=== PATIENT | male | born 1950 | race Caucasian/White ===

== ENCOUNTER → 2016-08-29 | Outpatient (CLI) | payer MEDICARE | END | disposition home or self-care (01) | LOC: LABPAT 12:19 | PROVIDERS: ATTEND Orthopaedic Surgery | DX: Z01.812 Encounter for preprocedural laboratory examination (principal) | CPT/HCPCS: 87070 ==

== ENCOUNTER 2016-09-15 08:16 | Inpatient (IN) | payer MEDICARE ==
[2016-09-05 09:52] VITALS: BMI 48.1
--- NOTE | 2016-09-14 15:07 | HP ---
DATE OF ADMISSION: 09/15/2016 Kevin Orozco is a 66-year-old patient seen with progressive left knee pain. After treatment options were discussed, he elected to proceed with left total knee arthroplasty. Consent regarding the procedure was obtained. Medical clearance provided by Dr. Rae. Cardiac clearance was provided by Dr. Higgins. Past medical history is cardiovascular disease, hyperlipidemia, hypertension. Past surgical history is noncontributory. DAILY MEDICATIONS: 1. Enalapril. 2. Furosemide. 3. Metoprolol. 4. Simvastatin. 5. Warfarin. Allergies are CODEINE. SOCIAL HISTORY: Patient denies tobacco use. Physical evaluation of the left knee: Range of motion is 0 to 120 degrees, tenderness along the medial joint line, mild intra-articular effusion. Crepitus along the medial and patellofemoral compartments with range of motion. There is pain with patellofemoral compression. There is a genu varum deformity about the knee, ligaments are stable. Hip rotation is without pain. The distal neurovascular exam is intact. Radiographs which were obtained of the left knee revealed severe medial and moderate to severe patellofemoral compartment osteoarthritis. IMPRESSION: Left knee osteoarthritis. PLAN: Left total knee arthroplasty.
[~2016-09-15 08:16] MED LIST: ACETAMINOPHEN TAB 500 MG TAB PO ONE; DEXAMETHASONE SOD PHOSPHATE 10 MG/ML 1 ML VIAL IV ONE; HYDROmorphone 1 MG/ML 1 ML SYRINGE IVP PRN; LACTATED RINGERS 1,000 ML IV SCH; LIDOCAINE 1% 20 ML VIAL (10MG/ML) FOR IV START INTRADERMA PRN; MELOXICAM 7.5 MG TAB PO ONE; MIDAZOLAM 2 MG/2 ML VIAL IV PRN; ONDANSETRON 4 MG/2 ML VIAL IVP ONE; SCOPOLAMINE 1.5MG/72HR PATCH TRANSDERM ONE; TRANEXAMIC ACID 1,000 MG in SODIUM CHLORIDE 0.9% 100 ML IVPB ONE; ceFAZolin 3 GM in SODIUM CHLORIDE 0.9% 100 ML IVPB ONE
[2016-09-15 09:15] LABS: INR 1.4 (<1.1); Prothrombin Time 13.5 sec (9.0-12.0)
[2016-09-15] MEDS ORDERED: LIDOCAINE 1% 20 ML VIAL (10MG/ML) FOR IV START INTRADERMA ONE (09:25)
[2016-09-15] MEDS ORDERED: ROPIVACAINE 246.25 MG, EPINEPHrine 0.5 MG, KETOROLAC 30 MG, cloNIDine HCL/PF 80 MCG, WA... MISCELLANE ONE ×5 (09:26)
[2016-09-15] MEDS ORDERED: MIDAZOLAM 2 MG/2 ML VIAL IV ONE (09:40)
[2016-09-15] MEDS ORDERED: NEOSTIGMINE 1 MG/ML 10 ML VIAL ONE (10:10)
[2016-09-15] MEDS ORDERED: SODIUM CHLORIDE 0.9% 100 ML BAG ONE (10:10)
[2016-09-15] MEDS ORDERED: TRANEXAMIC ACID 1,000 MG/10 ML VIAL ONE (10:10)
[2016-09-15] MEDS ORDERED: SUCCINYLCHOLINE CHLORIDE 100 MG/5 ML SYR IV ONE (10:10)
[2016-09-15] MEDS ORDERED: GLYCOPYRROLATE 0.2 MG/ML 2 ML VIAL ONE (10:10)
[2016-09-15] MEDS ORDERED: fentaNYL (PF) 50 MCG/ML 2 ML AMP ONE (10:10)
[2016-09-15] MEDS ORDERED: HYDROmorphone (PF) 1 MG/ML ONE (10:10)
[2016-09-15] MEDS ORDERED: ROCURONIUM BROMIDE 10 MG/ML 10 ML VIAL IV ONE (10:10)
[2016-09-15] MEDS ORDERED: PROPOFOL 10 MG/ML 20 ML VIAL IV ONE (10:10)
[2016-09-15] MEDS ORDERED: LIDOCAINE 1% INJ 10MG/ML (20 ML MDV) ONE (10:10)
[2016-09-15] MEDS ORDERED: MIDAZOLAM 2 MG/2 ML VIAL ONE (10:10)
[2016-09-15] MEDS ORDERED: ceFAZolin 3,000 MG in SODIUM CHLORIDE 0.9% IRRIGATIO 3,000 ML IRRIGATION ONE (10:41)
[2016-09-15] MEDS ORDERED: LACTATED RINGERS 1,000 ML IV ONE (11:45)
[2016-09-15] MEDS ORDERED: HYDROcodone/APAP 7.5-325MG 1 EACH TAB PO PRN ×2 (12:02)
[2016-09-15] MEDS ORDERED: ONDANSETRON 4 MG/2 ML VIAL IVP PRN (12:02)
[2016-09-15] MEDS ORDERED: HYDROmorphone 1 MG/ML 1 ML SYRINGE IVP PRN ×3 (12:02)
[2016-09-15] MEDS ORDERED: NALOXONE 0.4 MG/ML 1 ML VIAL IV PRN (12:02)
[2016-09-15] MEDS ORDERED: hydrOXYzine PAMOATE 25 MG CAP PO PRN (12:02)
--- NOTE | 2016-09-15 12:02 | P.OP ---
Date of Procedure: 09/15/16 Preoperative Diagnosis: Left knee osteoarthritis 5 Postoperative Diagnosis: Left knee osteoarthritis Procedure(s) Performed: Left total knee arthroplasty Implants: 1. Eric persona size 10 standard left cruciate retaining cemented femur 2. Eric persona size F left cemented tibia 3. Eric persona 13 mm medial congruent polyethylene tibial insert 4. Eric persona 38 mm cemented all polyethylene patella Anesthesia: GETA, regional (Adductor canal block), local Surgeon: Jose You Complaint Investigator #1: Semaj Magallon Estimated Blood Loss (ml): 125 Pathology: none sent Condition: stable Disposition: PACU Indications for Procedure: 66-year-old patient seen with symptomatic left knee osteoarthritis. After treatment options discussed, he elected to proceed with left total knee arthroplasty. Operative Findings: See description of procedure Description of Procedure: Patient was taken to the operative suite after having undergone an adductor canal block by department of anesthesia. Patient underwent a general anesthetic by the department of anesthesia. Patient was given preoperative IV intake antibiotics and TXA. A well-padded tourniquet was placed about the left lower extremity. The lower extremity was then prepped and draped in the normal sterile orthopedic fashion. A standard anterior incision was made sharply through skin. Dissection was taken down through the subcutaneous soft tissues down to the extensor mechanism. A medial arthrotomy was performed, patella was everted and knee was flexed. There was advanced osteoarthritis noted. A proximal tibial cutting guide was positioned. Proximal tibial cut was made. A distal intramedullary femoral cutting guide was positioned, distal femoral cut made. We placed the appropriate sizing guide and selected the appropriate size. A distal 4-in-1 femoral cutting block was positioned, distal femoral cuts were made. We insufflated the tourniquet to 350. We now placed a trial femoral component into position, along with an appropriate size tibial tray and insert. We now took the knee through range of motion and had full extension good flexion and good overall soft tissue balance noted. The patella was everted and a flush cut made with patellar quad tendon. We templated the patella, appropriate drill holes were made. An appropriate trial patella was positioned, knee was taken through full range of motion with the patella tracking very nicely. The trial patella was removed. Drill holes were made through the femoral component. All trial components were removed after marking off the appropriate rotation of the tibia. Retractors were now positioned along the proximal tibia. An appropriate keel punch was made with the appropriate size tibial guide. At this point appropriate size implants were chosen and opened. The joint was irrigated copiously with pulse lavage mechanical irrigation. The deep soft tissues were infiltrated with local analgesic. We mixed antibiotic methylmethacrylate. Once the methyl methacrylate was ready, the tibial component was cemented into place removing any excess methylmethacrylate. The femoral component was cemented into place removing the removing any excess methylmethacrylate. We then inserted the appropriate size polyethylene tibial insert. We made sure that it was locked into position. We took the knee into full extension, and then back in a flexion making sure we had removed any excess methylmethacrylate. The patellar component was then cemented down and secured with clamp. Excess methylmethacrylate removed. We kept the knee in full extension, patellar clamp in position until methylmethacrylate had hardened. Once it had hardened the patellar clamp was removed. The knee was taken through full range of motion. The patella tracked nicely. There was good soft tissue balancing. The tourniquet was now released. Additional hemostasis was achieved via electrocautery. A second gram of TXA was given. The wound was irrigated with pulse lavage mechanical irrigation. The superficial soft tissues were infiltrated local analgesic. The extensor mechanism was repaired with Vicryl. We checked the repair with range of motion and it was stable. The subcutaneous soft tissues were repaired with Vicryl in layers. The skin was approximated with pernio/Dermabond. Sterile dressings were applied followed by loose web roll and Rishabh bandage. The patient was transferred to a bed, and taken to recovery in stable and satisfactory condition. Semaj HALL assisted with the procedure.
[2016-09-15] MEDS ORDERED: ROPIVACAINE 1,100 MG, SODIUM CHLORIDE 0.9% 330 ML MISCELLANE PRN ×2 (12:28)
--- NOTE | 2016-09-15 13:43 | XR ---
EXAMINATION TYPE: XR knee limited LT DATE OF EXAM: 09/15/2016 1:40 PM COMPARISON: NONE HISTORY: Post op FINDINGS: There is a prosthetic knee in near anatomic alignment. There is soft tissue edema and emphysema. IMPRESSION: 1. Postoperative change. Appears in near-anatomic alignment
--- NOTE | 2016-09-15 15:55 | P.ONQ ---
Anesthesiology Proc Note - PNB - Peripheral Nerve Block Performed Left Adductor Canal Infusion Time Out Performed: Yes Procedure Start Time: :40 Procedure Stop Time: :51 Indication: Acute Post-Operative Pain, Requested by physician Sedation Type: Sedate with meaningful contact maintained Preparation: Sterile Dressing Position: Supine Catheter: Indwelling Needle Types: On-Q Needle Size: 50mm (2") Needle Gauge: 21 Technique: Ultrasound Injectate: 0.5% Ropivacaine (see comment for volume) (25cc) Blood Aspirated: No Pain Paresthesia on Injection Noted: No Resistance on Injection: Normal Events: Uneventful and Well Tolerated
[2016-09-15] MEDS: LACTATED RINGERS 1,000 ML IV SCH (15:58)
[2016-09-15] MEDS ORDERED: WARFARIN 5 MG TAB PO ONE (18:00)
[2016-09-15] MEDS: traMADol 50 MG TAB PO SCH ×2 (18:29→21:48)
[2016-09-15] MEDS ORDERED: LISINOPRIL 20 MG TAB PO SCH (18:30)
[2016-09-15] MEDS ORDERED: SENNOSIDES-DOCUSATE SODIUM 1 EACH TAB PO SCH (21:00)
[2016-09-15] MEDS: ceFAZolin 3 GM in SODIUM CHLORIDE 0.9% 100 ML IVPB SCH (21:45)
[2016-09-15] MEDS: METOPROLOL TARTRATE 25 MG TAB PO SCH (21:46)
[2016-09-16 00:46] VITALS: RESP 18
[2016-09-16] MEDS: ceFAZolin 3 GM in SODIUM CHLORIDE 0.9% 100 ML IVPB SCH (04:34)
[2016-09-16] MEDS: LACTATED RINGERS 1,000 ML IV SCH ×2 (04:34→12:42)
[2016-09-16 08:00] LABS: Basophils % (A) 0 %; CH 32.2; CHCM 32.3; Eosinophils # (A) 0.1 k/uL (0-0.7); Eosinophils % (A) 0 %; HDW 2.55; HGB 12.4 gm/dL (13.0-17.5); Luc # (Auto) 0.15; Luc % (Auto) 1; Lymphocytes # (A) 1.3 k/uL (1.0-4.8); Lymphocytes % (A) 10 %; MCHC 31.9 g/dL (31.0-37.0); MCV 100.3 fL (80.0-100.0); Monocytes # (A) 0.9 k/uL (0-1.0); Monocytes % (A) 6 %; Neutrophils # (A) 11.4 k/uL (1.3-7.7); Neutrophils % (A) 82 %; RBC 3.89 m/uL (4.30-5.90); RDW 13.4 % (11.5-15.5); WBC 13.9 k/uL (3.8-10.6); WBC (Perox) 14.58
[2016-09-16 08:16] LABS: INR 1.3 (<1.1); Prothrombin Time 12.7 sec (9.0-12.0)
[2016-09-16 08:30] VITALS: BP 158/86; PULSE 61; TEMP 96.8
[2016-09-16] MEDS: METOPROLOL TARTRATE 25 MG TAB PO SCH (08:53)
[2016-09-16] MEDS: traMADol 50 MG TAB PO SCH ×2 (08:53→13:07)
[2016-09-16] MEDS ORDERED: ENOXAPARIN 30 MG/0.3 ML SYRINGE SQ SCH (09:00)
[2016-09-16] MEDS ORDERED: LISINOPRIL 20 MG TAB PO SCH (09:00)
[2016-09-16] MEDS ORDERED: FAMOTIDINE 20 MG TAB PO SCH (09:00)
[2016-09-16] MEDS ORDERED: MELOXICAM 7.5 MG TAB PO SCH (09:00)
--- NOTE | 2016-09-16 10:08 | P.PN ---
Subjective Principal diagnosis: Status post left total knee arthroplasty Patient seen today resting in his hospital bed, he appears to be in no acute distress. His is present with him at bedside. Urinary catheter is been removed, he is voiding and has had a bowel movement. Denies chest pain, shortness of breath, lightheadedness, fever or chills. Objective - Vital Signs Vital signs: Vital Signs Temp 96.8 F L 09/16/16 07:00 Pulse 61 09/16/16 07:00 Resp 18 09/16/16 07:00 BP 158/86 09/16/16 07:00 Pulse Ox 94 L 09/16/16 07:00 Intake & Output 09/15/16 09/16/16 09/16/16 18:59 06:59 18:59 Intake Total 2151 1100 480 Output Total 425 1500 700 Balance 1726 -400 -220 Weight 135.171 kg Intake: IV 2151 1100 Lactated Ringers 1,000 ml 900 @ 100 mls/hr IV .Q10H NEHEMIAH Rx#:[id number] ceFAZolin 3 gm In Sodium 200 Chloride 0.9% 100 ml @ 100 mls/hr IVPB Q8H NEHEMIAH Rx#:[id number] Oral 480 Output: Urine 300 1500 700 Uretheral (Stewart) 700 Estimated Blood Loss 125 Other: Voiding Method Indwelling Catheter Indwelling Catheter - Exam Left lower extremity: Incision is clean, dry and intact. Medial and lateral aspects to have ecchymosis present. Calf is soft, no tenderness with palpation. Plantar flexion, dorsiflexion, EHL, FHL are intact. Cap refill is less than 3 seconds, sensory exam to light touch is intact - Labs CBC & Chem 7: 09/16/16 07:16 Labs: Abnormal Lab Results - Last 24 Hours (Table) 09/16/16 09/16/16 Range/Units 07:16 07:25 WBC 13.9 H (3.8-10.6) k/uL RBC 3.89 L (4.30-5.90) m/uL Hgb 12.4 L (13.0-17.5) gm/dL MCV 100.3 H (80.0-100.0) fL Neutrophils # 11.4 H (1.3-7.7) k/uL PT 12.7 H (9.0-12.0) sec Assessment and Plan Plan: Assessment: 1. Postop day #1 status post left total knee arthroplasty Plan: 1. Pain control, utilize oral medication 2. Continue On-Q pump, discontinue day 3 3. Daily dressing changes/ice and elevate 4. Encourage incentive spirometer 5. Continue PT and CPM 6. GI and DVT prophylaxis, continue use of Coumadin and Lovenox during inpatient stay 7. Medical recommendations 8. Discharge planning: Likely be discharged home today Time with Patient: Less than 30
--- NOTE | 2016-09-16 10:10 | P.DS ---
Providers Date of admission: 09/15/16 08:16 Expected date of discharge: 09/16/16 Attending physician: Jose You Consults: 09/15/16 12:02 Consult Physician Routine Consulting Provider: Blanco Carter Consult Reason/Comments: Medical management Do you want consulting provider notified?: Yes Primary care physician: Miri Rae [facility] Course: Date of admission: 09/15/2016 Date of discharge: 09/16/2016 Admission diagnosis: Status post left total knee arthroplasty Discharge diagnosis: Same Attending physician: Dr. You Surgical procedures: Left total knee arthroplasty Brief history: Patient is a 66-year-old male with a history of progressive primary left knee osteoarthritis. At this point patient has failed conservative treatment measures and has opted to proceed with a elective left total knee arthroplasty. Hospital course: Details of patient's surgery can be found in operative report. Patient tolerated the procedure well and was subsequently transported to orthopedic floor. Patient's orthopeidc and medical care was provided daily. Patient had daily laboratory tests performed for evaluation of overall blood counts. Patient had daily physical therapy to include strengthening range of motion as well as education with walker ambulation. Patient had daily CPM usage as part of their physical therapy program. Patient was treated with Lovenox and Coumadin for their postoperative DVT prophylaxis during their inpatient stay. Patient was noted to have a relatively uneventful postoperative course. Patient reported satisfactory pain control with oral pain medications by postoperative day 0. Patient showed satisfactory progress with physical therapy. Patient moved steadily through the program and had no difficulty meeting the goals by postoperative day 1. Given patient's otherwise satisfactory course and having met physical therapy goals, plan is to discharge patient home on postoperative day 1. Discharge condition/disposition: Patient will be discharged home in stable condition. Discharge medications: Instructions are given on resumption of patient's normal daily medications per primary care recommendation, in addition patient will be prescribed [place] 5 mg/325, Pepcid 20 mg, tramadol 50 mg. Discharge instructions: 1. Wound care and infection precautions, keep incision dry and covered while showering, no lotions, creams, moisturizers. No soaking, tubs, pools, hottubs. Do not scrub over the incision. 2. Weight-bear as tolerated with walker / cane until follow-up. 3. Ice and elevate when necessary. Do not exceed 20 minutes per hour with ice pack. 4. Utilize compression sleeve until seen at first follow up appointment. 5. Visiting nursing care. 6. Home physical therapy including home CPM. 7. Pain meds and anticoagulants per prescription. 8. Pain medication has potential to cause constipation. Increase oral fluid and fiber intake. Contact primary care provider if you have not had a bowel movement within 48 hours after discharge 9. No anti-inflammatory medication until discussed at first post operative visit, this including Motrin, Aleve, Mobic, Diclofenac. 10. Follow up in office at 2 weeks postop with Tod Magallon PA-C 11. Follow up with your primary care doctor 7-10 days after discharge. 12. Contact [facility] with any questions, . Procedures: Left total knee arthroplasty Patient Condition at Discharge: Good Plan - Discharge Summary New Discharge Prescriptions: Famotidine [Pepcid] 20 mg PO DAILY #20 tablet Hydrocodone/Acetaminophen [[place] 5-325] 1 each PO Q6HR PRN #40 tab PRN Reason: Pain traMADol HCl [Ultram] 50 mg PO Q6H PRN #40 tab PRN Reason: Pain Discharge Medication List Acetaminophen Tab [Tylenol Tab] 500 mg PO DIRECTED PRN 09/05/16 [History] Cephalexin [Keflex] 500 mg PO TID 09/05/16 [History] Enalapril [Vasotec] 10 mg PO W/SUPPER 09/05/16 [History] Enalapril [Vasotec] 20 mg PO QAM 09/05/16 [History] Furosemide [Lasix] 40 mg PO DIRECTED PRN 09/05/16 [History] Metoprolol Tartrate [Lopressor] 25 mg PO BID 09/05/16 [History] Multivit-Min/FA/Lycopene/Lut [Centrum Silver Tablet] 1 tab PO SUTUTHSA 09/05/16 [History] [place]-3 Acid Ethyl Esters [Lovaza] 2 gm PO QAM 09/05/16 [History] Potassium Chloride [Klor-Con 10] 10 meq PO DIRECTED PRN 09/05/16 [History] Simvastatin [Zocor] 20 mg PO SUTUTHSA 09/05/16 [History] Warfarin [Coumadin] 5 mg PO SUTUTHSA 09/05/16 [History] Warfarin [Coumadin] 7.5 mg PO MOWEFR 09/05/16 [History] Famotidine [Pepcid] 20 mg PO DAILY #20 tablet 09/16/16 [Rx] Hydrocodone/Acetaminophen [[place] 5-325] 1 each PO Q6HR PRN #40 tab 09/16/16 [Rx] traMADol HCl [Ultram] 50 mg PO Q6H PRN #40 tab 09/16/16 [Rx] Follow up Appointment(s)/Referral(s): Semaj Magallon PAC [PHYSICIAN TECHNICAL CLERK] - 2 Weeks Miri Rae MD [Primary Care Provider] - 1 Week Activity/Diet/Wound Care/Special Instructions: Walker - has at home CPM - has at home Home Care [facility] - [phone] Orthopedic Discharge Instructions: 1. Wound care and infection precautions, keep incision dry and covered while showering, no lotions, creams, moisturizers. No soaking, pools, hot tubs. Do not scrub over incision. 2. Weight-bear as tolerated with walker / cane until follow-up. 3. Ice and elevate when necessary. Do not exceed 20 minutes per hour with ice pack. 4. Utilize compression sleeve until seen at first follow up appointment. 5. Visiting nursing care. 6. Home physical therapy including home CPM. 7. Pain meds and anticoagulants per prescription. 8. Pain medication has potential to cause constipation. Increase oral fluid and fiber intake. Contact primary care provider if you have not had a bowel movement within 48 hours after discharge. 9. No anti-inflammatory medication until discussed at first post operative visit, this including Motrin, Aleve, Mobic, Diclofenac. 10. Follow up in office at 2 weeks postop with Tod Magallon PA-C 11. Follow up with your primary care doctor 7-10 days after discharge. 12. Contact [facility] with any questions, . Discharge Disposition: HOME WITH HOME HEALTH SERVICES
--- NOTE | 2016-09-16 10:44 | P.PN ---
Progress Note - Text 09/16 624 am 65-year-old male status post total knee replacement by Dr. You. Patient seen and evaluated this morning for pain control, has no pain VAS of 0 with solution running at 8 mL an hour no motor deficit noted.
--- NOTE | 2016-09-16 11:38 | P.CONS ---
History of Present Illness - Reason for Consult Consult date: 09/16/16 Medical management Requesting physician: Jose You - Chief Complaint Left knee osteoarthritis - History of Present Illness This is a 66-year-old gentleman with past medical history noted below significant for severe osteoarthritis of the left knee who was admitted to the hospital for elective total left knee arthroplasty. Patient is postoperative day #1. He tolerated the procedure well. He is up in the chair today when I saw her. Pain is well controlled. He does not have any specific concerns or complaints. He is hoping to go home today. I was asked to see him for medical management. Review of Systems Review of system: 14 points review of systems were obtained and were negative except to what were mentioned in the HPI. Past Medical History Past Medical History: Atrial Fibrillation, Hyperlipidemia, Hypertension, Osteoarthritis (OA) Additional Past Medical History / Comment(s): cellulitis rt leg 02/2016, on rx currently for UTI History of Any Multi-Drug Resistant Organisms: None Reported Past Surgical History: Pacemaker, Tonsillectomy Additional Past Surgical History / Comment(s): colonsocopy Past Anesthesia/Blood Transfusion Reactions: Motion Sickness Type of Cardiac Device: Permanent Pacemaker Device Placement Date:: 2007 Past Psychological History: No Psychological Hx Reported Smoking Status: Never smoker Past Alcohol Use History: Occasional Past Drug Use History: None Reported - Past Family History Mother Family Medical History: No Reported History Medications and Allergies Home Medications Medication Instructions Recorded Confirmed Type Acetaminophen Tab [Tylenol Tab] 500 mg PO DIRECTED PRN 09/05/16 09/15/16 History Cephalexin [Keflex] 500 mg PO TID 09/05/16 09/15/16 History Enalapril [Vasotec] 10 mg PO W/SUPPER 09/05/16 09/15/16 History Enalapril [Vasotec] 20 mg PO QAM 09/05/16 09/15/16 History Furosemide [Lasix] 40 mg PO DIRECTED PRN 09/05/16 09/15/16 History Metoprolol Tartrate [Lopressor] 25 mg PO BID 09/05/16 09/15/16 History Multivit-Min/FA/Lycopene/Lut 1 tab PO SUTUTHSA 09/05/16 09/15/16 History [Centrum Silver Tablet] [place]-3 Acid Ethyl Esters [Lovaza] 2 gm PO QAM 09/05/16 09/15/16 History Potassium Chloride [Klor-Con 10] 10 meq PO DIRECTED PRN 09/05/16 09/15/16 History Simvastatin [Zocor] 20 mg PO SUTUTHSA 09/05/16 09/15/16 History Warfarin [Coumadin] 5 mg PO SUTUTHSA 09/05/16 09/15/16 History Warfarin [Coumadin] 7.5 mg PO MOWEFR 09/05/16 09/15/16 History Allergies Allergy/AdvReac Type Severity Reaction Status Date / Time codeine Allergy insomnia Verified 09/05/16 09:33 Physical Exam Vitals: Vital Signs Temp Pulse Resp BP Pulse Ox 09/16/16 07:00 96.8 F L 61 18 158/86 94 L 09/16/16 02:00 98.4 F 60 18 117/65 97 09/15/16 20:00 97.4 F L 67 18 139/74 96 09/15/16 17:30 63 131/75 93 L 09/15/16 17:15 62 129/69 93 L 09/15/16 17:00 62 132/72 93 L 09/15/16 16:45 62 134/69 93 L 09/15/16 16:30 63 132/72 93 L 09/15/16 16:15 67 132/74 92 L 09/15/16 16:00 95.4 F L 54 L 16 124/68 92 L 09/15/16 15:27 60 18 140/65 95 09/15/16 14:59 60 18 121/58 95 09/15/16 14:30 60 18 135/56 95 09/15/16 14:15 60 18 139/63 95 09/15/16 13:58 60 18 132/60 95 09/15/16 13:46 60 18 131/56 95 09/15/16 13:30 60 18 128/58 97 09/15/16 13:15 60 18 125/57 97 09/15/16 12:59 60 18 127/57 97 09/15/16 12:44 60 18 128/59 96 09/15/16 12:33 98 F 60 18 131/61 94 L Intake and Output 09/15/16 09/16/16 09/16/16 22:59 06:59 14:59 Intake Total 50 1100 480 Output Total 200 1500 950 Balance -150 -400 -470 Intake: IV 50 1100 Lactated Ringers 1,000 ml 900 @ 100 mls/hr IV .Q10H NEHEMIAH Rx#:[id number] ceFAZolin 3 gm In Sodium 200 Chloride 0.9% 100 ml @ 100 mls/hr IVPB Q8H NEHEMIAH Rx#:[id number] Oral 480 Output: Urine 200 1500 950 Uretheral (Stewart) 700 Other: Voiding Method Indwelling Catheter General: The patient is awake and alert, in no distress, and does not appear acutely ill. Eye: extra-ocular movements are intact; there is normal conjunctiva bilaterally. . Neck: The neck is supple, there is no tenderness or JVD. Cardiovascular: Normal S1-S2, no S3-S4, no murmurs. Respiratory: Lungs clear to auscultation bilaterally with no wheezes rhonchi or rales. Gastrointestinal: Abdomen is soft, nontender, obese Musculoskeletal: There is +1 pedal edema. Neurological: There are no obvious motor or sensory deficits. Speech is normal. Skin: Skin is warm and dry and no rashes or lesions are noted. Results CBC & Chem 7: 09/16/16 07:16 Labs: Abnormal Lab Results - Last 24 Hours (Table) 09/16/16 09/16/16 Range/Units 07:16 07:25 WBC 13.9 H (3.8-10.6) k/uL RBC 3.89 L (4.30-5.90) m/uL Hgb 12.4 L (13.0-17.5) gm/dL MCV 100.3 H (80.0-100.0) fL Neutrophils # 11.4 H (1.3-7.7) k/uL PT 12.7 H (9.0-12.0) sec Assessment and Plan Plan: 1. Severe osteoarthritis of the left knee postoperative day #1 status post total knee arthroplasty 2. DVT prophylaxis on Coumadin per orthopedic protocol 3. Essential hypertension: Blood pressure within acceptable range 4. Paroxysmal atrial fibrillation: Heart rate well controlled. On anticoagulation with Coumadin 5. Mixed hyperlipidemia 6. Physical debility, continue physical therapy as tolerated 7. Leukocytosis: Most likely reactive with no evidence of infection. If patient remained in the hospital repeat CBC in the morning. Today, I reviewed her medication list and lab work results. Continue current regimen. Thank you very much for the consultation. I will continue to follow up on the patient closely. Patient may resume his regular home medication is discharged home today.
[2016-09-16] MEDS ORDERED: MULTIVITAMINS, THERA 1 EACH TAB PO SCH (12:00)
[2016-09-16] MEDS ORDERED: WARFARIN 7.5 MG TAB PO ONE (18:00)
[2016-09-16] MEDS ORDERED: ATORVASTATIN 10 MG TAB PO SCH (21:00)
== END 2016-09-16 14:58 | disposition home health service (06) | DRG 470 ==
LOC: 2ORMAIN 08:16 → 3SUR 15:47
PROVIDERS: ADMIT Orthopaedic Surgery; ATTEND Orthopaedic Surgery
PROC: 0SRD0J9 Replacement of Left Knee Joint with Synthetic Substitute, Cemented, Open Approach (ICD-10-PCS; principal; 2016-09-15 10:05)
DX: M17.12 Unilateral primary osteoarthritis, left knee (principal); I48.91 Unspecified atrial fibrillation; I10 Essential (primary) hypertension; E78.5 Hyperlipidemia, unspecified; I25.10 Atherosclerotic heart disease of native coronary artery without angina pectoris; M21.169 Varus deformity, not elsewhere classified, unspecified knee; Z79.01 Long term (current) use of anticoagulants; Z79.899 Other long term (current) drug therapy; Z88.5 Allergy status to narcotic agent; Z95.0 Presence of cardiac pacemaker
CPT/HCPCS: 85025; 85610; 88300

== ENCOUNTER → 2017-02-12 | Day surgery (SDC) | payer MEDICARE ==
[2017-02-11 10:37] VITALS: BMI 48.4
[~2017-02-12] MED LIST changes: +ACETAMINOPHEN TAB 325 MG TAB PO PRN; -ACETAMINOPHEN TAB 500 MG TAB PO ONE; -DEXAMETHASONE SOD PHOSPHATE 10 MG/ML 1 ML VIAL IV ONE; -HYDROmorphone 1 MG/ML 1 ML SYRINGE IVP PRN; -LACTATED RINGERS 1,000 ML IV SCH; -LIDOCAINE 1% 20 ML VIAL (10MG/ML) FOR IV START INTRADERMA PRN; +LIDOCAINE 1% INJ 10MG/ML (20 ML MDV) SQ ONE; -MELOXICAM 7.5 MG TAB PO ONE; +MIDAZOLAM 2 MG/2 ML VIAL IV ONE; -MIDAZOLAM 2 MG/2 ML VIAL IV PRN; +MIDAZOLAM 2 MG/2 ML VIAL ONE; -ONDANSETRON 4 MG/2 ML VIAL IVP ONE; -SCOPOLAMINE 1.5MG/72HR PATCH TRANSDERM ONE; +SODIUM CHLORIDE 0.9% 1,000 ML IV SCH; -TRANEXAMIC ACID 1,000 MG in SODIUM CHLORIDE 0.9% 100 ML IVPB ONE; +ceFAZolin 1,000 MG in SODIUM CHLORIDE 0.9% IRRIGATIO 250 ML IRRIGATION ONE; +ceFAZolin 2 GM in SODIUM CHLORIDE 0.9% 100 ML IVPB ONE; -ceFAZolin 3 GM in SODIUM CHLORIDE 0.9% 100 ML IVPB ONE; +fentaNYL (PF) 50 MCG/ML 2 ML AMP IV ONE; +fentaNYL (PF) 50 MCG/ML 2 ML AMP ONE
[2017-02-12 06:57] VITALS: RESP 18
[2017-02-12 07:11] LABS: Anion Gap 12 mmol/L; Blood Urea Nitrogen 21 mg/dL (9-20); Calcium 9.1 mg/dL (8.4-10.2); Carbon Dioxide 23 mmol/L (22-30); Chloride 107 mmol/L (98-107); Glucose 110 mg/dL (74-99); Non-African American GFR(MDRD) >60 (>60 ml/min/1.73 sqM); Potassium 4.3 mmol/L (3.5-5.1); Sodium 142 mmol/L (137-145)
[2017-02-12 08:08] LABS: INR 1.3 (<1.1); Prothrombin Time 12.9 sec (9.0-12.0)
--- NOTE | 2017-02-12 08:20 | P.PCN ---
Date of Procedure: 02/12/17 Preoperative Diagnosis: Battery depletion Postoperative Diagnosis: The same Procedure(s) Performed: Generator replacement Implants: Indications for Procedure: Operative Findings: Description of Procedure: HISTORY: This is a 66-year-old gentleman with history of permanent pacemaker implantation for sick sinus syndrome. Recent evaluation showed evidence of battery depletion. Patient is advised to have replacement of the battery. CONSENT: I have discussed the risks and benefits as related to the above mentioned procedure and both sedation/analgesia as well as necessary blood product administration. The patient has indicated understanding and acceptance of the risks of the procedure discussed. PROCEDURE: Patient was brought to the lab in a fasting state. Patient was given IV Versed and fentanyl for sedation. The skin over the existing pulse generator was infiltrated with lidocaine. An incision was made in the skin and was deepened until the pectoral fascia was exposed. Hemostasis was obtained. The existing pulse generator was pulled out of the pocket. The leads were disconnected and were checked for thresholds. THRESHOLDS: ATRIAL: . Patient is in atrial flutter and fibrillation . The impedance is 351 ohms . P-wave VENTRICULAR: The minimal patient threshold was 0.5 V at pulse width of 0.5 ms. Impedance is 456 ohms . R- wave: 16 mV THE LEADS: ATRIAL: This is manufactured by [employer]. Model number is 4479. Serial number is [id number] VENTRICULAR: This is manufactured by [employer]. Model number is 4457. Serial number is [id number] THE EXPLANTED DEVICE: This is manufactured by [employer]. Model number is 1291 and serial number is [id number] THE NEW DEVICE: This is manufactured by [employer] ([employer] Model number is L101 and the serial number is [id number] . The leads were then connected to a new pulse generator . Pacemaker seems to function normally. The pocket was irrigated with antibiotics. The pocket was closed in the usual fashion. Pectoral fascia was closed with 2-0 Prolene, the subcutaneous tissue was closed with 3-0 Prolene and the skin was closed with 4-0 Prolene. Patient tolerated the procedure well . Patient will be monitored on the telemetry unit for 2-3 hours. If stable patient be discharged home later today. PLAN: Continue monitoring for the next 2-3 hours. If stable discharge home. Patient will continue home medications including Coumadin. Patient will have pro time and INR on Thursday. FALLOW UP: With Dr. Higgins in 1 week
[2017-02-12 08:55] VITALS: PULSE 60
[2017-02-12 12:08] VITALS: BP 150/74; TEMP 98.2
== END | disposition home or self-care (01) ==
LOC: CATHEP 06:28
PROVIDERS: ATTEND Internal Medicine Cardiovascular Disease
DX: I48.2 Chronic atrial fibrillation (principal); Z45.010 Encounter for checking and testing of cardiac pacemaker pulse generator [battery]; I49.5 Sick sinus syndrome; Z79.01 Long term (current) use of anticoagulants; I11.0 Hypertensive heart disease with heart failure; I50.32 Chronic diastolic (congestive) heart failure; R60.0 Localized edema; E78.5 Hyperlipidemia, unspecified; Z79.899 Other long term (current) drug therapy
CPT/HCPCS: 33228; 80048; 85610; C1785; J2250; J0690 ×2; J2001; J3010

== ENCOUNTER 2024-10-17 08:21 | Day surgery (SDC) | payer MEDICARE ==
[2024-10-13 10:22] VITALS: BMI 45.1
--- NOTE | 2024-10-16 20:11 | HP ---
HISTORY AND PHYSICAL DATE OF SURGERY: 10/17/2024. HISTORY OF PRESENT ILLNESS: Kevin Orozco is a 74-year-old gentleman seen with symptomatic right knee osteoarthritis. After having treatment options discussed, he elected to proceed with right total knee arthroplasty. Consent regarding procedure obtained. Cardiac clearance was provided by Dr. Saez. PAST MEDICAL HISTORY: Cardiovascular disease, atrial fibrillation, hypertension, hyperlipidemia. PAST SURGICAL HISTORY: Left total knee arthroplasty, pacemaker. DAILY MEDICATIONS: 1. Enalapril. 2. Metoprolol. 3. Simvastatin. 4. Lasix. 5. Potassium. ALLERGIES: Codeine. SOCIAL HISTORY: Denies current tobacco use. PHYSICAL EVALUATION OF THE RIGHT KNEE: Range of motion is -3/ 130 degrees. Moderate effusion. Tenderness in the medial joint line and crepitus in the medial patellofemoral compartments with range of motion; pain with patellofemoral compression. Ligaments stable. Hip rotation without pain. Distal neurovascular exam is intact. RADIOGRAPHS: Right knee reveal severe osteoarthritic changes. IMPRESSION: 1. Right knee osteoarthritis. 2. Hypertension. 3. Hyperlipidemia. 4. Cardiovascular disease. PLAN: Right total knee arthroplasty. MMODL / IJN: [id number] /
[~2024-10-17 08:21] MED LIST changes: -ACETAMINOPHEN TAB 325 MG TAB PO PRN; +LIDOCAINE 1% (10MG/ML) FOR IV START INTRADERMA PRN; -LIDOCAINE 1% INJ 10MG/ML (20 ML MDV) SQ ONE; -MIDAZOLAM 2 MG/2 ML VIAL IV ONE; -MIDAZOLAM 2 MG/2 ML VIAL ONE; -SODIUM CHLORIDE 0.9% 1,000 ML IV SCH; +TRANEXAMIC 1,000 MG/100ML-NACL 1,000 MG in SALINE 1 100ML.BAG IVPB PRN; -ceFAZolin 1,000 MG in SODIUM CHLORIDE 0.9% IRRIGATIO 250 ML IRRIGATION ONE; -ceFAZolin 2 GM in SODIUM CHLORIDE 0.9% 100 ML IVPB ONE; -fentaNYL (PF) 50 MCG/ML 2 ML AMP IV ONE; -fentaNYL (PF) 50 MCG/ML 2 ML AMP ONE
[2024-10-17] MEDS: LACTATED RINGERS 1,000 ML IV ONE ×2 (09:30→11:42)
[2024-10-17] MEDS: MELOXICAM 7.5 MG TAB PO PRN (09:33)
[2024-10-17] MEDS: ONDANSETRON 4 MG/2 ML VIAL IVP ONE (09:34)
[2024-10-17] MEDS: ACETAMINOPHEN TAB 500 MG TAB PO PRN (09:34)
[2024-10-17] MEDS: DEXAMETHASONE SOD PHOSPHATE 4 MG/ML 1 ML VIAL IVP STA (09:35)
[2024-10-17] MEDS: MIDAZOLAM 2 MG/2 ML VIAL IVP ONE (09:45)
[2024-10-17] MEDS ORDERED: TRANEXAMIC 1,000 MG/100ML-NACL PREMIX BAG ONE (10:28)
[2024-10-17] MEDS ORDERED: DEXAMETHASONE SOD PHOSPHATE 4 MG/ML 1 ML VIAL ONE (10:28)
[2024-10-17] MEDS ORDERED: MIDAZOLAM 2 MG/2 ML VIAL ONE (10:28)
[2024-10-17] MEDS: ceFAZolin 1,000 MG in SODIUM CHLORIDE 0.9% 1,000 ML IRRIGATION ONE (10:28)
[2024-10-17] MEDS ORDERED: fentaNYL (PF) 50 MCG/ML 2 ML AMP ONE (10:28)
[2024-10-17] MEDS ORDERED: ROPIVACAINE 5 MG/ML 30 ML VIAL ONE (10:28)
[2024-10-17] MEDS ORDERED: NALOXONE 0.4 MG/ML 1 ML VIAL IV PRN (12:27)
[2024-10-17] MEDS ORDERED: HYDROcodone/APAP 5-325MG 1 EACH TAB PO PRN (12:27)
[2024-10-17] MEDS ORDERED: ONDANSETRON 4 MG/2 ML VIAL IVP PRN (12:27)
[2024-10-17] MEDS ORDERED: HYDROmorphone 0.5 MG/0.5 ML SYRINGE IVP PRN ×2 (12:27)
--- NOTE | 2024-10-17 12:27 | P.OP ---
Date of Procedure: 10/17/24 Preoperative Diagnosis: Right knee osteoarthritis Postoperative Diagnosis: Right knee osteoarthritis Procedure(s) Performed: Right total knee arthroplasty Implants: 1. DePuy attune size 7 right cruciate retaining cemented femur 2. DePuy attune size 7 fixed-bearing cemented tibial baseplate 3. DePuy attune size 7 fixed-bearing cruciate retaining 16 mm polyethylene tibial insert 4. DePuy attune 41 mm all polyethylene cemented patella Anesthesia: regional (Adductor canal block, iPAQ block), spinal Surgeon: Jose You Dev Technical Mgr #1: Semaj Magallon Estimated Blood Loss (ml): 50 Pathology: none sent Condition: stable Disposition: PACU Indications for Procedure: 74-year-old patient seen with symptomatic right knee osteoarthritis. After having treatment options discussed, he elected to proceed with total knee ar throplasty. Operative Findings: See description of procedure Description of Procedure: Patient was taken to the operative suite after having an adductor canal catheter placed by the department of anesthesia. Patient underwent a spinal anesthetic by the department of anesthesia. Patient was given preoperative IV intake antibiotics and TXA. A well-padded tourniquet was placed about the right lower extremity. The lower extremity was then prepped and draped in the normal sterile orthopedic fashion. The extremity was elevated, a tourniquet was insufflated to 300. A standard anterior incision was made sharply through skin. Dissection was taken down through the subcutaneous soft tissues down to the extensor mechanism. A medial arthrotomy was performed, patella was everted and knee was flexed. There was advanced osteoarthritis noted. I introduced my distal intramedullary femoral drill. I then introduced the distal femoral cutting jig. Tod HALL secured the cutting jig with 2 pins. I held retractors in position while Tod HALL performed the distal femoral resection through the guide area we now removed her distal femoral cutting guide. We now placed our 4-in-1 femoral cutting block and positioned and it was secured with 2 pins by Tod HALL while I held the block in position. The distal femoral finishing was now completed. A proximal tibial cutting guide was positioned. I held the guide in the appropriate position with both hands well Tod HALL inserted stabilizing pins into the guide. Proximal tibial cut was made. We now placed a trial femoral component into position, along with an appropriate size tibial tray and insert. We now took the knee through range of motion and had full extension good flexion and good overall soft tissue balance noted. The patella was everted and stabilized with 2 towel clips held by Tod HALL while I performed a flush with patellar quad tendon utilizing a fresh sawblade. We templated the patella, appropriate drill holes were made. An appropriate trial patella was positioned, knee was taken through full range of motion with the patella tracking very nicely. The trial patella was removed. Drill holes were made through the femoral component. All trial components were removed after marking off the appropriate rotation of the tibia. Retractors were now positioned along the proximal tibia. An appropriate keel punch was made with the appropriate size tibial guide by myself on Tod HALL assisted by holding retractors. At this point appropriate size implants were chosen and opened. The joint was irrigated copiously with pulse lavage mechanical irrigation. The wound was irrigated with pulse lavage mechanical irrigation. We mixed antibiotic methylmethacrylate. We placed the knee into flexion. We placed multiple retractors assisted by Tod HALL to expose the proximal tibia. Once the methyl methacrylate was ready, the tibial component was cemented into place removing any excess methylmethacrylate form by both myself and Tod HALL. The femoral component was cemented into place removing the removing any excess methylmethacrylate performed by both myself and Tod HALL. We then inserted the appropriate size polyethylene tibial insert. We made sure that it was locked into position. We took the knee into full extension, and then back in a flexion making sure we had removed any excess methylmethacrylate. The patellar component was then cemented down and secured with clamp. Excess methylmethacrylate removed. We kept the knee in full extension, patellar clamp in position until methylmethacrylate had hardened. Once it had hardened the patellar clamp was removed. The knee was taken through full range of motion. The patella tracked nicely. There was good soft tissue balancing. The tourniquet was now released. Additional hemostasis was achieved via electrocautery. A second gram of TXA was given. The wound again was irrigated with pulse lavage mechanical irrigation. The extensor mechanism was repaired with Ethibond suture. We checked the repair with range of motion and it was stable. The subcutaneous soft tissues were repaired with Vicryl in layers. The skin was approximated with pernio/Dermabond. Sterile dressings were applied followed by loose web roll and Rishabh bandage. The patient was transferred to a bed, and taken to recovery in stable and satisfactory condition. Tod HALL assisted with this complex procedure.
--- NOTE | 2024-10-17 12:39 | P.ANPRN ---
Procedure Note - Anesthesia - Nerve Block Performed Right Adductor Canal Single Time Out Performed: Yes Date of Procedure: 10/17/24 Procedure Start Time: 09:45 Procedure Stop Time: 10:10 Location of Patient: PreOp Indication: Acute Post-Operative Pain, Requested by Surgeon Sedation Type: Sedate with meaningful contact maintained Preparation: Sterile Prep Position: Supine Needle Types: Pajunk Needle Gauge: 21 Ultrasound used to visualize needle placement: Yes Ultrasound used to observe medication spread: Yes Blood Aspirated: No Pain Paresthesia on Injection Noted: No Resistance on Injection: Normal Image Stored and Saved: Yes Events: Uneventful and Well Tolerated (Ropivacaine 0.5% 20 cc plus dexamethasone 4 mg)
--- NOTE | 2024-10-17 12:40 | P.ANPRN ---
Procedure Note - Anesthesia - Nerve Block Performed Right iPack Single Time Out Performed: Yes Date of Procedure: 10/17/24 Procedure Start Time: 10:11 Procedure Stop Time: 10:16 Location of Patient: PreOp Indication: Acute Post-Operative Pain, Requested by Surgeon Sedation Type: Sedate with meaningful contact maintained Preparation: Sterile Prep Position: Left Lateral Needle Types: Pajunk Needle Gauge: 21 Ultrasound used to visualize needle placement: Yes Ultrasound used to observe medication spread: Yes Blood Aspirated: No Pain Paresthesia on Injection Noted: No Resistance on Injection: Normal Image Stored and Saved: Yes Events: Uneventful and Well Tolerated (Ropivacaine 0.5% 20 cc was dexamethasone 4 mg)
--- NOTE | 2024-10-17 13:36 | XR ---
EXAMINATION TYPE: XR knee limited RT DATE OF EXAM: 10/17/2024 1:25 PM COMPARISON: Outside right knee x-ray July 08, 2024 CLINICAL INDICATION: Male, 74 years old with history of Evaluation for Postop abnormality and alignme nt, pain TECHNIQUE: Portable AP and crosstable lateral views of the right knee are obtained immediately posto peratively. FINDINGS: Metallic hardware from total right knee arthroplasty is seen and appears satisfactory in alignment and position. There is evidence of recent surgery with diffuse subcutaneous gas and swelli ng along with overlying vertical skin brenda all noted. IMPRESSION: METALLIC HARDWARE FROM TOTAL right KNEE ARTHROPLASTY IS SATISFACTORY IN ALIGNMENT. [facility], , 10/17/2024 1:33 PM
[2024-10-17] MEDS ORDERED: FUROSEMIDE 40 MG TAB PO PRN (13:58)
[2024-10-17] MEDS: LACTATED RINGERS 1,000 ML IV SCH (14:11)
[2024-10-17] MEDS: SODIUM CHLORIDE 0.9% 1,000 ML IV SCH (14:12)
[2024-10-17] MEDS: HYDROcodone/APAP 7.5-325MG 1 EACH TAB PO PRN (15:24)
--- NOTE | 2024-10-17 16:59 | P.CONS ---
History of Present Illness - Reason for Consult Consult date: 10/17/24 Medical Management Requesting physician: Jose You - History of Present Illness History of Presenting Illness: Patient is a very pleasant 74-year-old male with a past medical history of CAD with permanent pacemaker placement, paroxysmal atrial fibrillation on anticoagulation with Eliquis, hypertension, hyperlipidemia, congestive heart failure (unknown type), obstructive sleep apnea CPAP dependent nightly, and osteoarthritis. He is currently admitted under orthopedic surgery team status post elective right total knee arthroplasty. Surgical procedure was completed by Dr. You secondary to severe right knee osteoarthritis. We were consulted for medical management throughout hospitalization. Patient seen and fully evaluated in room 480 shortly after returning from completion of surgical procedure. He currently reports only mild postoperative pain and stating it is controlled with current medication regimen. Patient denies having any postoperative nausea or vomiting and reports he was able to eat without any difficulties. Patient reports he did ambulate once with assistance and walker to restroom and urinated without any difficulties. Patient denies having any headache, lightheadedness, dizziness, chest pain, palpitations, shortness of breath, or any other complaints at this time. Patient's at bedside states that patient was coughing prior to procedure as he had a cold last week and still has a remaining cough, but patient reports feeling great at this time. Review of systems: Pertinent positives and negatives as discussed in HPI, a complete review of systems was performed and all other systems are negative. Physical exam: Vital signs reviewed and stable. General: Nontoxic, no distress and appears stated age. Derm: Skin warm and dry, normal coloration for ethnicity. Head: Atraumatic, normocephalic and symmetric. Eyes: EOM's intact, no lid lag, and anicteric sclera Mouth: no lip lesions, mucus membranes moist Cardiovascular: regular rate and rhythm with normal S1S2, systolic murmur, positive posterior tibial pulses bilaterally, and cap refill < 2 seconds. Lungs: Respirations even, regular, and unlabored on room air. Lungs CTA bilaterally, no rhonchi, no rales, no wheezing, and no accessory muscle usage. Abdominal: soft, nontender to palpation, no guarding, no appreciable organomegaly Ext:. No gross muscle atrophy, no edema, no contractures. Movement and sensation intact. Postoperative dressing/Rishabh wrap and ice packs in place to right knee. Neuro: Speech clear, face symmetrical and CN II-XII grossly intact with no noted focal neuro deficits Psych: Alert and oriented to person, place, time, and situation. Appropriate and pleasant affect. Assessment and Plan of Care: Status post right total knee arthroplasty -Management per primary admitting orthopedic surgery team including DVT prophylaxis, pain management, wound/dressing management, weightbearing, and PT/OT. -Patient currently on DVT prophylaxis with aspirin 81 mg twice daily. History of CAD with permanent pacemaker placement Paroxysmal atrial fibrillation Hypertension Hyperlipidemia Congestive heart failure (unknown type) -Recommend telemetry monitoring during postoperative period. -Continue daily medication regimen with enalapril 20 mg every morning and 10 mg every evening, furosemide 40 mg daily, metoprolol 25 mg twice daily, and simvastatin 20 mg daily. -Recommend resumption of anticoagulant with Eliquis 5 mg twice daily once cleared by Primary admitting orthopedic surgery team to resume. Obstructive sleep apnea -Continue CPAP nightly and while napping. Data and imaging reviewed: -Reviewed operative report. -Vital signs reviewed. Blood pressure 147/87, heart rate 60, respiratory rate 16, and SpO2 of 96% on room air. Thank you for allowing us to participate in the care of this pleasant patient. Do not hesitate to contact us with questions. Someone can be reached from the [facility] hospitalist group all hours of the day at [phone] or via [employer]. Patient was seen independently by Nurse Practitioner. This document was prepared using [employer] dictation software. Please allow for errors in guideman while rare they do occur. Jaylon Davis NP rendered care for this patient independently, reviewed the findings and plan as documented in the note above and agree with plan. I did no t physically speak with or examine the patient on this date. Past Medical History Past Medical History: Atrial Fibrillation, Cancer, Heart Failure, COPD, Hyperlipidemia, Hypertension, Osteoarthritis (OA), Sleep Apnea/CPAP/BIPAP Additional Past Medical History / Comment(s): see scanned H & P, current antibiotics for a chest cold. Skin cancer years ago. Does not use a CPAP. History of Any Multi-Drug Resistant Organisms: None Reported Past Surgical History: Joint Replacement, Pacemaker, Tonsillectomy Additional Past Surgical History / Comment(s): colonoscopy, left knee replaced, pt on his third pacemaker. Past Anesthesia/Blood Transfusion Reactions: Motion Sickness Type of Cardiac Device: Permanent Pacemaker Device Placement Date:: 2022 Past Psychological History: No Psychological Hx Reported Smoking Status: Never smoker Past Alcohol Use History: Rare Past Drug Use History: None Reported - Past Family History Mother Family Medical History: No Reported History Medications and Allergies Home Medications Medication Instructions Recorded Confirmed Type Enalapril [Vasotec] 10 mg PO W/SUPPER 09/05/16 10/13/24 History Enalapril [Vasotec] 20 mg PO QAM 09/05/16 10/13/24 History Furosemide [Lasix] 40 mg PO DAILY PRN 09/05/16 10/13/24 History Metoprolol Tartrate [Lopressor] 25 mg PO BID 09/05/16 10/13/24 History Multivit-Min/FA/Lycopen/Lutein 1 tab PO SUTUTHSA 09/05/16 10/13/24 History [Centrum Silver Tablet] Potassium Chloride [Klor-Con 10] 10 meq PO DAILY PRN 09/05/16 10/13/24 History Simvastatin [Zocor] 20 mg PO SUTUTHSA 09/05/16 10/13/24 History CHLORPHEN-HYDROcod 8-10mg/5ml 5 ml PO Q12HR PRN 02/11/17 10/13/24 History [Tussionex] Doxycycline Hyclate 100 mg PO BID 02/11/17 10/13/24 History Fluticasone/Umeclidin/Vilanter 1 puff INHALATION DAILY 10/13/24 10/13/24 History [Trelegy Ellipta 200-62.5-25] Apixaban [Eliquis] 5 mg PO BID 10/17/24 10/17/24 History Allergies Allergy/AdvReac Type Severity Reaction Status Date / Time codeine Allergy insomnia Verified 10/17/24 08:49 Physical Exam Vitals: Vital Signs Temp Pulse Pulse Resp BP BP Pulse Ox 10/17/24 13:40 98.1 F 63 17 138/77 95 10/17/24 13:23 60 16 140/65 96 10/17/24 13:08 60 16 134/56 93 L 10/17/24 12:52 60 16 135/62 98 10/17/24 12:37 60 16 139/70 100 10/17/24 10:15 60 16 143/64 95 10/17/24 09:11 96.7 F L 60 18 170/74 94 L Intake and Output 10/16/24 10/17/24 10/17/24 22:59 06:59 14:59 Intake Total 1151 Output Total 50 Balance 1101 Intake: IV 1151 Output: Estimated Blood Loss 50 Other: Weight 134.2 kg
[2024-10-17] MEDS: lisinopriL 10 MG TAB PO SCH (17:01)
[2024-10-17] MEDS: ceFAZolin 3 GM in SODIUM CHLORIDE 0.9% 100 ML IVPB SCH (17:47)
[2024-10-17] MEDS: HYDROmorphone 0.5 MG/0.5 ML SYRINGE IVP PRN (18:00)
[2024-10-17] MEDS: METOPROLOL TARTRATE 25 MG TAB PO SCH (20:32)
[2024-10-17] MEDS: SENNOSIDES-DOCUSATE SODIUM 1 EACH TAB PO SCH (20:32)
[2024-10-17] MEDS: ASPIRIN 81 MG PO SCH (20:32)
[2024-10-18 02:39] VITALS: TEMP 99.7
[2024-10-18 04:09] LABS: Basophils % (A) 0 %; Eosinophils % (A) 0 %; HCT 37.7 % (39.0-53.0); HGB 11.1 gm/dL (13.0-17.5); Hypochromasia Marked; Lymphocytes # (A) 0.6 k/uL (1.0-4.8); Lymphocytes % (A) 5 %; MCH 31.3 pg (25.0-35.0); MCHC 29.5 g/dL (31.0-37.0); MCV 106.2 fL (80.0-100.0); Macrocytosis Moderate; Mean Platelet Volume 7.5; Monocytes # (A) 0.6 k/uL (0-1.0); Monocytes % (A) 5 %; Neutrophils % (A) 90 %; Platelet Count 264 k/uL (150-450); RBC 3.55 m/uL (4.30-5.90); RDW 13.8 % (11.5-15.5); WBC 13.3 k/uL (3.8-10.6)
[2024-10-18 08:06] VITALS: BP 151/75; PULSE 60; RESP 18
[2024-10-18] MEDS: ATORVASTATIN 10 MG TAB PO SCH (08:16)
[2024-10-18] MEDS: MULTIVITAMINS, THERA 1 EACH TAB PO SCH (08:16)
[2024-10-18] MEDS: lisinopriL 20 MG TAB PO SCH (08:17)
[2024-10-18 08:42] LABS: BUN/Creat Ratio 20.23 Ratio (12.00-20.00); Blood Urea Nitrogen 26.3 mg/dL (9.0-27.0); Calcium 8.7 mg/dL (8.7-10.3); Carbon Dioxide 19.8 mmol/L (21.6-31.8); Chloride 106 mmol/L (96-109); Glucose 128 mg/dL (70-110); Magnesium 2.1 mg/dL (1.5-2.4); Sodium 139 mmol/L (135-145)
[2024-10-18] MEDS: TIOTROPIUM 2.5 MCG INHALER INHALATION SCH (09:38)
[2024-10-18] MEDS: SYMBICORT 160-4.5 MCG INHALER INHALATION SCH (09:38)
--- NOTE | 2024-10-18 11:37 | P.PN ---
Subjective Progress Note Date: 10/18/24 Hospital course: Patient is a very pleasant 74-year-old male with a past medical history of CAD with permanent pacemaker placement, paroxysmal atrial fibrillation on anticoagulation with Eliquis, hypertension, hyperlipidemia, congestive heart failure (unknown type), obstructive sleep apnea CPAP dependent nightly, and osteoarthritis. He is currently admitted under orthopedic surgery team status post elective right total knee arthroplasty. Surgical procedure was completed by Dr. You secondary to severe right knee osteoarthritis. We were consulted for medical management throughout hospitalization. Physical exam: Patient seen and fully evaluated at bedside this morning. He is postoperative day 1. Patient appears to be doing well and reports postoperative pain is controlled. Patient states pain has only been mild in both he and his states that he has been getting around well in the room. Patient denies having any headache, lightheadedness, dizziness, chest pain, palpitations, shortness of breath, cough or congestion, or any other complaints at this time Vital signs reviewed and stable. General: Nontoxic, no distress and appears stated age. Derm: Skin warm and dry, normal coloration for ethnicity. Head: Atraumatic, normocephalic and symmetric. Eyes: EOM's intact, no lid lag, and anicteric sclera Mouth: no lip lesions, mucus membranes moist Cardiovascular: regular rate and rhythm with normal S1S2, systolic murmur, positive posterior tibial pulses bilaterally, and cap refill < 2 seconds. Lungs: Respirations even, regular, and unlabored on room air. Lungs CTA bilaterally, no rhonchi, no rales, no wheezing, and no accessory muscle usage. Abdominal: soft, nontender to palpation, no guarding, no appreciable organomegaly Ext:. No gross muscle atrophy, no edema, no contractures. Movement and sensation intact. Postoperative dressing/Rishabh wrap and ice packs in place to right knee. Neuro: Speech clear, face symmetrical and CN II-XII grossly intact with no noted focal neuro deficits Psych: Alert and oriented to person, place, time, and situation. Appropriate and pleasant affect. Assessment and Plan of Care: Status post right total knee arthroplasty -Management per primary admitting orthopedic surgery team including DVT prophyla xis, pain management, wound/dressing management, weightbearing, and PT/OT. -Patient currently on DVT prophylaxis with aspirin 81 mg twice daily. Acute postoperative blood loss anemia -This is a stable and expected finding with preoperative hemoglobin of 13.1 and postoperative hemoglobin of 11.1. No need for transfusion or further interventions at this time. Leukocytosis -WBC count elevated at 13.1. This is likely reactive secondary to surgical procedure as there are no signs of infection. No need for further intervention at this time. History of CAD with permanent pacemaker placement Paroxysmal atrial fibrillation Hypertension Hyperlipidemia Congestive heart failure (unknown type) -Recommend telemetry monitoring during postoperative period. -Continue daily medication regimen with enalapril 20 mg every morning and 10 mg every evening, furosemide 40 mg daily, metoprolol 25 mg twice daily, and simvastatin 20 mg daily. -Recommend resumption of anticoagulant with Eliquis 5 mg twice daily once cleared by Primary admitting orthopedic surgery team to resume. Obstructive sleep apnea -Continue CPAP nightly and while napping. Data and imaging reviewed: -Postoperative labs reviewed. CBC showing leukocytosis with WBC count of 13.1 and acute postoperative blood loss anemia with hemoglobin of 11.1 and preoperative hemoglobin of 13.1. BMP showing bicarb of 19.8 and slightly eleva ron anion gap of 13.20. Blood glucose 128. Magnesium 2.1. -Vital signs reviewed. Blood pressure 151/75, heart rate 60, respiratory rate 18, temp 99.7 F, and SpO2 of 91% on room air. Patient is medically optimized for discharge once cleared by primary admitting orthopedic surgery team. Medication reconciliation was completed for discharge. Thank you for allowing us to participate in the care of this pleasant patient. Do not hesitate to contact us with questions. Someone can be reached from [facility] all hours of the day at [phone] or via [employer]. Patient was seen independently by Nurse Practitioner. This document was prepared using [employer] dictation software. Please allow for errors in crm consultant while rare they do occur. Jaylon Davis NP rendered care for this patient independently, reviewed the findings and plan as documented in the note above and agree with plan. I did not physically speak with or examine the patient on this date. Objective - Vital Signs Vital signs: Vital Signs Temp 99.7 F H 10/18/24 02:13 Pulse 61 10/18/24 02:13 Resp 17 10/18/24 02:13 BP 143/77 10/18/24 02:13 Pulse Ox 93 L 10/18/24 02:13 FiO2 Intake & Output 10/17/24 10/18/24 10/18/24 18:59 06:59 18:59 Intake Total 1151 Output Total 50 Balance 1101 Weight 134.2 kg Intake: IV 1151 Output: Estimated Blood Loss 50 Other: Voiding Method Toilet # Voids 2 - Labs CBC & Chem 7: 10/18/24 03:09 10/18/24 03:09 Labs: Abnormal Lab Results - Last 24 Hours (Table) 10/18/24 Range/Units 03:09 WBC 13.3 H (3.8-10.6) k/uL RBC 3.55 L (4.30-5.90) m/uL Hgb 11.1 L (13.0-17.5) gm/dL Hct 37.7 L (39.0-53.0) % MCV 106.2 H (80.0-100.0) fL MCHC 29.5 L (31.0-37.0) g/dL Neutrophils # 12.0 H (1.3-7.7) k/uL Lymphocytes # 0.6 L (1.0-4.8) k/uL
--- NOTE | 2024-10-18 12:29 | P.DS ---
Providers Date of admission: 10/17/2024 Expected date of discharge: 10/18/24 Attending physician: Jose You Consults: 10/17/24 12:27 Consult Physician Routine Consulting Provider: Emma Mays Consult Reason/Comments: Medical management Do you want consulting provider notified?: Yes Primary care physician: Shadi Leon Hospital Course: Date of admission: 10/17/2024 Date of discharge: 10/18/2024 Admission diagnosis: Right knee osteoarthritis Discharge diagnosis: Same Attending physician: Dr. You Surgical procedures: Right total knee arthroplasty Brief history: Patient is a 74-year-old male with a history of progressive primary right knee osteoarthritis. At this point patient has failed conservative treatment measures and has opted to proceed with a elective right total knee arthroplasty. Hospital course: Details of patient's surgery can be found in operative report. Patient tolerated the procedure well and was subsequently transported to orthopedic floor. Patient's orthopeidc and medical care was provided daily. Patient had daily laboratory tests performed for evaluation of overall blood counts. Patient had daily physical therapy to include strengthening range of motion as well as education with walker ambulation. Patient was treated with aspirin for their postoperative DVT prophylaxis during their inpatient stay. Patient was noted to have a relatively uneventful postoperative course. Patient reported satisfactory pain control with oral pain medications by postoperative day 1. Patient showed satisfactory progress with physical therapy. Patient moved steadily through the program and had no difficulty meeting the goals by postoperative day 1. Given patient's otherwise satisfactory course and having met physical therapy goals, plan is to discharge patient home with health services on postoperative day 1. Discharge condition/disposition: Patient will be discharged home with health services in stable condition. Discharge medications: Instructions are given on resumption of patient's normal daily medications per primary care recommendation, in addition patient will be prescribed [place]; resume Eliquis once home. Discharge instructions: 1. Wound care and infection precautions, keep incision dry and covered while showering, no lotions, creams, moisturizers. No soaking, tubs, pools, hottubs. Do not scrub over the incision. 2. Weight-bear as tolerated with walker / cane until follow-up. 3. Ice and elevate when necessary. Do not exceed 20 minutes per hour with ice pack. 4. Utilize compression sleeve until seen at first follow up appointment. 5. Visiting nursing care. 6. Home physical therapy including home CPM. 7. Pain meds and anticoagulants per prescription. 8. Pain medication has potential to cause constipation. Increase oral fluid and fiber intake. Contact primary care provider if you have not had a bowel movement within 48 hours after discharge 9. No anti-inflammatory medication until discussed at first post operative visit, this including Motrin, Aleve, Mobic, Diclofenac. 10. Follow up in office at 2 weeks postop with Tod Magallon PA-C / Christopher Mcgregor PA-C 11. Follow up with your primary care doctor 7-10 days after discharge. 12. Contact [facility] with any questions, . Assessment: Right knee osteoarthritis Procedures: Right total knee arthroplasty Patient Condition at Discharge: Good Plan - Discharge Summary Discharge Rx Participant: No New Discharge Prescriptions: New HYDROcodone/APAP 7.5-325MG [[place] 7.5-325] 1 - 2 tab PO Q6HR PRN #32 tab PRN Reason: Pain Continue Enalapril [Vasotec] 10 mg PO W/SUPPER Enalapril [Vasotec] 20 mg PO QAM Potassium Chloride [Klor-Con 10 ER] 10 meq PO DAILY PRN PRN Reason: with lasix Furosemide [Lasix] 40 mg PO DAILY PRN PRN Reason: Edema Simvastatin [Zocor] 20 mg PO SUTUTHSA Multivit-Min/FA/Lycopen/Lutein [Centrum Silver Tablet] 1 tab PO SUTUTHSA Metoprolol Tartrate [Lopressor] 25 mg PO BID Doxycycline Hyclate 100 mg PO BID CHLORPHEN-HYDROcod 8-10mg/5ml [Tussionex] 5 ml PO Q12HR PRN PRN Reason: Cough Fluticasone/Umeclidin/Vilanter [Trelegy Ellipta 200-62.5-25] 1 puff INHALATION DAILY Apixaban [Eliquis] 5 mg PO BID Discharge Medication List Enalapril [Vasotec] 10 mg PO W/SUPPER 09/05/16 [History] Enalapril [Vasotec] 20 mg PO QAM 09/05/16 [History] Furosemide [Lasix] 40 mg PO DAILY PRN 09/05/16 [History] Metoprolol Tartrate [Lopressor] 25 mg PO BID 09/05/16 [History] Multivit-Min/FA/Lycopen/Lutein [Centrum Silver Tablet] 1 tab PO SUTUTHSA 09/05/16 [History] Potassium Chloride [Klor-Con 10 ER] 10 meq PO DAILY PRN 09/05/16 [History] Simvastatin [Zocor] 20 mg PO SUTUTHSA 09/05/16 [History] CHLORPHEN-HYDROcod 8-10mg/5ml [Tussionex] 5 ml PO Q12HR PRN 02/11/17 [History] Doxycycline Hyclate 100 mg PO BID 02/11/17 [History] Fluticasone/Umeclidin/Vilanter [Trelegy Ellipta 200-62.5-25] 1 puff INHALATION DAILY 10/13/24 [History] Apixaban [Eliquis] 5 mg PO BID 10/17/24 [History] HYDROcodone/APAP 7.5-325MG [[place] 7.5-325] 1 - 2 tab PO Q6HR PRN #32 tab 10/18/24 [Rx] Follow up Appointment(s)/Referral(s): Jose You DO [Doctor of Osteopathic Medicine] - 11/02/24 2:20 pm [facility] Visiting Nurse, [NON-STAFF] - As Needed Activity/Diet/Wound Care/Special Instructions: Okay to resume Eliquis on 10/19/2024. Orthopedic Discharge Instructions: 1. Wound care and infection precautions, keep incision dry and covered while showering, no lotions, creams, moisturizers. No soaking, pools, hot tubs. Do not scrub over incision. 2. Weight-bear as tolerated with walker / cane until follow-up. 3. Ice and elevate when necessary. Do not exceed 20 minutes per hour with ice pack. 4. Utilize compression sleeve until seen at first follow up appointment. 5. Pain meds and anticoagulants per prescription. 6. Pain medication has potential to cause constipation. Increase oral fluid and fiber intake. Contact primary care provider if you have not had a bowel movement within 48 hours after discharge. 7. No anti-inflammatory medication until discussed at first post operative visit, this including Motrin, Aleve, Mobic, Diclofenac. 8. Follow up in office at 2 weeks postop with Tod Magallon PA-C / Christopher Mcgregor PA-C 9. Follow up with your primary care doctor 7-10 days after discharge. 10. Contact [facility] with any questions, . Keep silver foam dressing on for 7 days postop. While showering, cover silver foam dressing with Saran wrap. Silver foam dressing be removed on 10/24/2024. Once dressing is removed, it is okay to shower directly over incision. Discharge Disposition: HOME WITH HOME HEALTH SERVICES
--- NOTE | 2024-10-18 12:37 | P.PN ---
Subjective Progress Note Date: 10/18/24 Principal diagnosis: Right knee osteoarthritis Patient was seen at bedside this morning sitting up in chair icing the right knee with silver foam dressing present over right knee. Patient says he finished working with therapy this morning and walked down the hallway and up and down steps. Patient says he did do well and is looking forward to going home later today. Patient says he does have a walker at home already to help with ambulation. Patient says he has urinated several times since surgery yesterday without issue. Has not had a bowel yet, however has been passing gas. Patient denies any other issues at this time. Objective - Vital Signs Vital signs: Vital Signs Temp 99.7 F H 10/18/24 02:13 Pulse 60 10/18/24 06:57 Resp 18 10/18/24 06:57 BP 151/75 10/18/24 06:57 Pulse Ox 91 L 10/18/24 06:57 FiO2 Intake & Output 10/17/24 10/18/24 10/18/24 18:59 06:59 18:59 Intake Total 1151 Output Total 50 Balance 1101 Weight 134.2 kg Intake: IV 1151 Output: Estimated Blood Loss 50 Other: Voiding Method Toilet # Voids 2 - Exam Right knee: Incision is clean, dry, and intact. The silver foam dressing is in good condition. There is minimal soft tissue swelling and ecchymosis surrounding the medial and lateral aspects of the incision. Calf is soft, no tenderness with palpation. Plantar flexion, dorsiflexion, EHL, FHL are intact. Sensory exam to light touch throughout the extremity is intact, dorsal pedis pulses 2+. - Labs CBC & Chem 7: 10/18/24 03:09 10/18/24 03:09 Labs: Abnormal Lab Results - Last 24 Hours (Table) 10/18/24 10/18/24 Range/Units 03:09 03:09 WBC 13.3 H (3.8-10.6) k/uL RBC 3.55 L (4.30-5.90) m/uL Hgb 11.1 L (13.0-17.5) gm/dL Hct 37.7 L (39.0-53.0) % MCV 106.2 H (80.0-100.0) fL MCHC 29.5 L (31.0-37.0) g/dL Neutrophils # 12.0 H (1.3-7.7) k/uL Lymphocytes # 0.6 L (1.0-4.8) k/uL Carbon Dioxide 19.8 L (21.6-31.8) mmol/L Anion Gap 13.20 H (4.00-12.00) mmol/L Est GFR (CKD-EPI) 57 L (>=60) BUN/Creatinine Ratio 20.23 H (12.00-20.00) Ratio Glucose 128 H (70-110) mg/dL Assessment and Plan Assessment: Right knee osteoarthritis -Postop day 1 status post right total knee arthroplasty Plan: 1. Right knee osteoarthritis -right total knee arthroplasty performed yesterday, 10/17/2024. Patient stable bedside this morning. Patient did do well with therapy this morning. Patient does have walker for home. pain well-controlled. Discharge home to day with health services. 2. Appreciate medical management 3. Pain management -[place] 4. DVT prophylaxis -resume Eliquis once home 5. GI prophylaxis - senna 6. PT/OT -weightbearing as tolerated with walker and assistance as needed 7. Encourage incentive spirometer use 8. Discharge planning -home today with health services.
[2024-10-18] MEDS ORDERED: NON FORMULARY DRUG (Multivit-Min/Fa/Lycopen/Lutein [Centrum Silver Tablet] 1 EACH Tablet) PO SCH (13:58)
== END 2024-10-18 13:31 | disposition home health service (06) ==
LOC: OR 08:21 → 4SSUR 12:33 → OR 10-18 13:31
PROVIDERS: ATTEND Orthopaedic Surgery
DX: M17.11 Unilateral primary osteoarthritis, right knee (principal); I25.10 Atherosclerotic heart disease of native coronary artery without angina pectoris; I11.0 Hypertensive heart disease with heart failure; I50.32 Chronic diastolic (congestive) heart failure; E78.5 Hyperlipidemia, unspecified; I48.19 Other persistent atrial fibrillation; Z95.0 Presence of cardiac pacemaker; Z01.810 Encounter for preprocedural cardiovascular examination; Z96.653 Presence of artificial knee joint, bilateral; Z88.5 Allergy status to narcotic agent; Z79.899 Other long term (current) drug therapy
CPT/HCPCS: 97161; 64999; 64448; 80048; 83735; 85025; 73560; 27447; C1776; C1713 ×2; C1751; J2250; J1100; J0690 ×3; J2405; J1171